=== PATIENT | male | born 1945 | race Caucasian/White ===

== ENCOUNTER 2017-05-30 11:26 | Emergency (ER) | payer MEDICARE ==
[~2017-05-30 11:26] MED LIST: CIP500 PO; DICY20TA70 PO; DOCU-416 PO; GLUC-125 PO; HYDR-2966 PO; LISI-362 PO; LOSA50TA72 PO; MELO-205 PO; METR-1 PO; MULT-1335 PO; OMEG-96 PO; OND4 PO; OXYC-373 PO; PER PO; RANI-375 PO
--- NOTE | 2017-05-30 11:35 | ER Report ---
History and Physical Time Seen By MD: 11:35 Hx. of Stated Complaint: PATIENT REPORTS THAT HE HAS AN AREA ON HIS RIGHT HAND THAT IS CONCERNING FOR A SPIDER BITE. HE REPORTS THAT LAST NIGHT HE HAD A DRY ITCHY SPOT THAT SWELED AND BECAME BRUISED OVERNIGHT (BLAINE TATUM [facility]-) HPI/ROS CHIEF COMPLAINT: Possible spider bite HISTORY OF PRESENT ILLNESS: This is a 72-year-old male who presents to the emergency department with concerns of a spider bite. Patient states that last night he noticed his right hand was itching between the index and middle finger webspace. Then he began changing colors last night, had a reddish hue in the webspace. Today he's noticed significant color changes as well as blistering in the webspace with a deep purple localized to that webspace, moving up the medial side of the left index finger. Nothing noted on the palmar side. Sensation intact. Denies aches, chills, nausea, vomiting, diarrhea, chest pain or shortness of breath. REVIEW OF SYSTEMS: Constitutional: No fever, no chills. Eyes: No discharge. ENT: No sore throat. Cardiovascular: No chest pain, no palpitations. Respiratory: No cough, no shortness of breath. Gastrointestinal: No abdominal pain, no vomiting. Genitourinary: No hematuria. Musculoskeletal: No back pain. Skin: As above. Neurological: No headache. (BLAINE TATUM [facility]-) Allergies: Uncoded Allergies: hayfever (Allergy, Mild, UNKNOWN, 09/04/11) Home Meds Reported Medications Ranitidine Hcl (ZANTAC 75) 75 Mg Tablet, 75 MG PO BID Y for GAS/HEARTBURN 04/10/15 Gluc/Paxton-Msm#2/C/D3/Kenneth/Born (ILORCFBIGM-JZMJSGRLFYI-PJK TAB) 1 Each Tablet, 1 EACH PO DAILY 04/10/15 [place]-3 Fatty Acids/Fish Oil (OMEGA 3 1,000 MG SOFTGEL) 1 Each Capsule, 1 EACH PO QDAY, CAPSULE 04/10/15 Losartan Potassium (LOSARTAN POTASSIUM) 50 Mg Tablet, 50 MG PO QDAY 04/10/15 Dicyclomine Hcl (DICYCLOMINE HCL) 20 Mg Tablet, 1 TAB PO QID Y for PAIN 04/04/15 Hydrochlorothiazide (HYDROCHLOROTHIAZIDE) 25 Mg Tablet, 1 TAB PO QDAY, TAB 04/04/15 Meloxicam (MELOXICAM) 7.5 Mg Tablet, 2 TAB PO QDAY 04/04/15 Multivitamins W-Minerals (Multiple Vitamin) 1 Tab Tablet, 1 TAB PO DAILY, 0 Refills 12/25/10 Past Medical/Surgical History She has a past medical and surgical history of hypertension, hypercholesterolemia, pneumonia, diverticulosis, GERD, enlarged prostate, vasectomy, general arthritis, back pain, wears glasses, eye surgery. (BLAINE TATUMP-) Reviewed Nurses Notes: Yes ([facility]LAINE TATUM [facility]-) Hx Smoking: No Smoking Status: Never Smoker Hx Substance Use Disorder: No Hx Alcohol Use: No (BLAINE TATUM [employer]-) Constitutional Vital Sign - Last 24 Hours 05/30/17 05/30/17 05/30/17 05/30/17 11:29 11:30 11:32 13:08 Temp 98.6 Pulse 78 76 Resp 20 20 B/P (MAP) 184/96 (125) 149/87 149/87 (107) 169/100 (123) Pulse Ox 93 93 O2 Delivery Room Air ([facility],LISSETH Joy MD) Physical Exam General Appearance: The patient is alert, has no immediate need for airway protection and no signs of toxicity. Eyes: Pupils equal and round no pallor or injection. ENT, Mouth: Mucous membranes are moist. No mucous membrane involvement. No blistering or erythema. Respiratory: There are no retractions, lungs are clear to auscultation. Cardiovascular: Regular rate and rhythm, no murmurs, clicks or rubs. Gastrointestinal: Abdomen is soft and non tender, no masses, bowel sounds normal. Neurological: Alert and oriented 4. Moving all extremities. No focal neuro deficits. Pulling all commands. Skin: Warm and dry. There is a dark purple blister to the dorsum side of the right webspace between the the right index and middle finger. The blister does extend up the medial side of the index finger near to MIP. Mild surrounding erythema is warm but not hot to touch. No obvious signs of puncture side from a spider. No other blisters or rashes identified. Musculoskeletal: Neck is supple non tender. Extremities are nontender, nonswollen and have full range of motion. DIFFERENTIAL DIAGNOSIS: After history and physical exam differential diagnosis was considered for Cleaning-Jameel's syndrome, localized infection, cellulitis, adverse medication reaction, osteomyelitis and necrosis secondary to envenomation. [facility] Medical Decision Making EKG/Imaging Imaging Location: [facility] [place] Patient: Trevon Truong : 1945 Visit/Account:[id number] Date of Sevice: 05/30/2017 EXAMINATION: Right hand radiographs 3 views HISTORY: Blister, bruising in between second and third digits. Tightness. Evaluate for infection. COMPARISON: None. FINDINGS: PA, lateral and oblique views of the right hand are obtained. Bones: No acute fracture. Bone mineralization is within normal limits. Joint spaces: Joint space narrowing and osteophytes at the third MCP joint. Mild cortical irregularity along the medial head of the third metacarpal, likely joint degenerative changes. Osteophytes along multiple DIP joints. Mild joint space narrowing and osteophytes at the first MCP joint. Hardware: None. Soft tissues: Focal soft tissue swelling along the medial base of the second finger. No gas is seen within the soft tissues. IMPRESSION: Focal soft tissue swelling or blister at the medial base of the right second finger. No evidence of osteomyelitis. 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 Report Dictated By: Carl Baeza MD at 05/30/2017 12:12 PM Report E-Signed By: Carl Baeza MD at 05/30/2017 12:19 PM WSN:[id number] (BLAINE TATUM [facility]) ED Course/Re-evaluation ED Course The patient was admitted to room. A history of score obtained. Differential diagnoses were considered. An x-ray of the right hand showing no acute abnormalities no osseous involvement. I didn't have speaking with Dr. Morrison regarding the patient's blister and concerned that it is a brown recluse spider bite. Although no spider was seen no bite was felt no sting was identified he said if the injury increases over the course of weekend he'll be having to come in and help debridement the injury. Otherwise the patient could follow up Friday to the visit with Dr. Morrison. Instructed the patient to keep an eye on the wound and monitor for worsening symptoms increased necrosis or pain at which time he should consider coming back to the emergency department for further evaluation and possible debridement. We did bandage the wound with the blisters intact. The patient was encouraged to keep the area clean and dry and covered as best she can to help prevent any further damage to the area. The patient and other questions or concerns at this time and was discharged home. The patient was in agreement with this plan of care. I did have Dr. Law evaluate the patient's wound is well. 05/30/2017 1:06:00 pm I did review this case with Dr. Morrison and he said if the patient does return that we can have him come in and he would help debridement the wound. Otherwise the patient could follow up Friday and Dr. Morrison can evaluate then. 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) Depart Departure Latest Vital Signs Vital Signs Date Time Temp Pulse Resp B/P (MAP) Pulse Ox O2 Delivery O2 Flow Rate FiO2 05/30/17 13:08 76 20 169/100 (123) 93 05/30/17 11:30 98.6 Room Air (LISSETH LAW MD) Impression: Primary Impression: Spontaneous hematoma of hand Additional Impression: Blister of hand, right Condition: Condition Unchanged Disposition: HOME OR SELF-CARE Referrals: GEMINI DELA CRUZ DO (PCP) ROSALBA MORRISON MD Patient Instructions: Acute Wound Care (ED), Blister (ED), Brown Recluse Spider Bite (ED), Debridement (ED), Hematoma (ED) Additional Instructions: Drink plenty of fluids. Get plenty of rest. Continue taking your antibiotics as prescribed. Closely monitor the wound for necrosis or any other concerns, if it is worse may return to the ED for any other concerns. If it looks infected please return to the ED. If the pain becomes too painful may return to the ED. Try to leave the blister intact. If you do not return this weekend for reevaluation, Dr. Morrison will see you in his office Friday, you will need to call and make that appointment. May return to the ED for any other concerns. 911 EMERGENCY DISPATCHER/PA consult with MD: Verbally, Examined Patient MD Consult Note: I evaluated this patient with our nurse practitioner, Blaine Tatum. He has a lesion between the index and middle finger. This appears to be bruising with slight blood blister or small hematoma. It is slightly warm and swollen. Uncertain etiology. Thought possibly due to insect or spider bite but unsure, insect or spider was never visualized. Patient does not know exactly when it happened and had no pain but noticed the area of the fact afterwards. Please see Blaine's note for details on history and physical exam. He is currently on doxycycline and will continue that. Electing to just observe at this time all remaining on the antibiotic. Blaine did consult general surgery, Dr. Morrison, who will come in and see the patient if needed through the weekend. Patient was counseled to keep the wound covered. If it ruptures, it will need to be debrided. If it is spreading, it may need to be debrided as well. He can call us here at the ER or return for reevaluation. (LISSETH LAW MD) Problem Qualifiers Additional Impression: Blister of hand, right Encounter type: initial encounter Qualified Codes: S60.521A - Blister ( nonthermal) of right hand, initial encounter BLAINE TATUM [employer] RECLAIMING MACHINE OPERATOR-BC May 30, 2017 11:35 LISSETH LAW MD May 30, 2017 12:36
--- NOTE | 2017-05-30 12:24 | RADIOLOGY IMAGING REPORT ---
FACILITY: [facility] - [place] PATIENT NAME: Trevon Truong : 1945 MR: [id number] V: [id number] EXAM DATE: ORDERING PHYSICIAN: TOYA TATUM TECHNOLOGIST: Location: [facility] [place] Patient: Trevon Truong : 1945 Visit/Account:[id number] Date of Sevice: 05/30/2017 EXAMINATION: Right hand radiographs 3 views HISTORY: Blister, bruising in between second and third digits. Tightness. Evaluate for infection. COMPARISON: None. FINDINGS: PA, lateral and oblique views of the right hand are obtained. Bones: No acute fracture. Bone mineralization is within normal limits. Joint spaces: Joint space narrowing and osteophytes at the third MCP joint. Mild cortical irregulari ty along the medial head of the third metacarpal, likely joint degenerative changes. Osteophytes brandi ng multiple DIP joints. Mild joint space narrowing and osteophytes at the first MCP joint. Hardware: None. Soft tissues: Focal soft tissue swelling along the medial base of the second finger. No gas is seen within the soft tissues. IMPRESSION: Focal soft tissue swelling or blister at the medial base of the right second finger. No evidence of o steomyelitis. 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 Report Dictated By: Carl Baeza MD at 05/30/2017 12:12 PM Report E-Signed By: Carl Baeza MD at 05/30/2017 12:19 PM WSN:[id number]
[2017-05-30 13:08] VITALS: BP 169/100
== END 2017-05-30 13:13 | disposition home or self-care (01) ==
LOC: ER 11:26
DX: S60.521A Blister (nonthermal) of right hand, initial encounter (principal); S60.221A Contusion of right hand, initial encounter
CPT/HCPCS: 99282